=== PATIENT | male | born 1955 | race African-American/Black ===

== ENCOUNTER 2024-01-05 14:46 | Emergency (ER) | payer OTHER ==
[~2024-01-05] VITALS: Ht 182.9 cm; Wt 81.8 kg
[2024-01-05] MEDS: HYDROcodone-ACET 10/325MG TAB PO ONE (16:13)
[2024-01-05] MEDS: KETOROLAC TROMETH 60MG/2ML VIAL IM ONE (16:13)
[2024-01-05] MEDS ORDERED: CYCL-839 PO (17:05)
[2024-01-05] MEDS ORDERED: HYDR-4902 PO (17:05)
[2024-01-05] MEDS ORDERED: IBUP-1455 PO (17:05)
[2024-01-05 17:24] VITALS: BP 123/80; PULSE 95; RESP 19; TEMP 98.8; O2SAT 97
== END 2024-01-05 17:48 | disposition home or self-care (01) ==
LOC: ER 14:46
DX: S39.012A Strain of muscle, fascia and tendon of lower back, initial encounter (principal); M47.896 Other spondylosis, lumbar region; X50.0XXA Overexertion from strenuous movement or load, initial encounter; Y93.89 Activity, other specified; Y92.89 Other specified places as the place of occurrence of the external cause; Y99.8 Other external cause status
CPT/HCPCS: 72070; 72100; 96372; 99284; J1885

== ENCOUNTER 2024-02-21 15:09 | Inpatient (IN) | payer OTHER, MEDICARE ==
[~2024-02-21] VITALS: Ht 182.9 cm; Wt 87.5 kg
[~2024-02-21 15:09] MED LIST: CYCL-839 PO; HYDR-4902 PO; IBUP-1455 PO
[2024-02-21 16:32] LABS: Basophils # (auto) 0.1 10 ^3/uL (0-0.2); Basophils % (auto) 0.6 % (0.0-2.0); Eosinophils # (auto) 0.3 10 ^3/uL (0-0.8); Eosinophils % (auto) 1.9 % (0.0-7.0); Hematocrit 42.9 % (41.0-53.0); Hemoglobin 14.2 g/dL (13.5-17.5); Lymphocytes % (auto) 7.5 % (10.0-50.0); Mean Corpuscular Hemoglobin 29.3 pg (28.0-32.0); Mean Corpuscular Volume 88.8 fL (80.0-100.0); Monocytes # (auto) 0.8 10 ^3/uL (0-1.3); Monocytes % (auto) 5.6 % (0.0-12.0); Neutrophils # (auto) 11.6 10 ^3/uL (1.6-8.6); Neutrophils % (auto) 84.4 % (37.0-80.0); Red Blood Cells 4.83 10^6/uL (4.5-5.90); Red Cell Distribution Width 12.8 % (11.8-14.3); White Blood Cell 13.7 10^3/uL (4.4-10.8)
[2024-02-21 17:01] LABS: Alanine Aminotransferase 29 U/L (7-40); Alkaline Phosphatase 139 U/L (46-116); Anion Gap 6 (5-15); Aspartate Aminotransferase 21 U/L (13-40); BUN/Creatinine Ratio 16.1 (10.0-20.0); Bilirubin, Total 0.3 mg/dL (0.2-1.0); Blood Urea Nitrogen 23 mg/dL (9-23); Calcium 9.8 mg/dL (8.5-10.1); Carbon Dioxide 30 mmol/L (20-30); Chloride 102 mmol/L (98-107); Glucose 94 mg/dL (74-106); Sodium 138 mmol/L (136-145); Total Protein 6.9 g/dL (5.7-8.2)
[2024-02-21] MEDS: IOHEXOL 350 MG/ML 100ML IJ ONE (17:51)
[2024-02-21] MEDS: ALBUTEROL SULF 2.5 MG/0.5ML(0.5%) NEB SOLN NEB ONE (22:55)
[2024-02-21] MEDS: IPRATROPIUM BROM 0.5 MG/2.5ML INH SOL NEB ONE (22:55)
[2024-02-21] MEDS: DexAMETHasone SOD PHOS 10MG/1ML VIAL INJ IV ONE (23:07)
[2024-02-21] MEDS: cefTRIAXone 2GM/50ML D5W 50 ML IV ONE (23:08)
[2024-02-21] MEDS: cefTRIAXone 1GM/50ML D5W 100 ML IV ONE (23:08)
[2024-02-21 23:54] LABS: Urine Bacteria None Seen /hpf (None Seen)
[2024-02-22] VITALS (10 sets, daily range): BP systolic 110–121; BP diastolic 66–92; PULSE 88–115; RESP 13–20; TEMP 98.4–98.9; O2SAT 93–98
[2024-02-22 00:16] LABS: Urine Blood Negative /uL (Negative); Urine Clarity Clear (Clear); Urine Color Light-Yellow (Yellow); Urine Mucus FEW (None Seen); Urine Protein, UAD TRACE (Negative); Urine Urobilinogen Normal (Negative); Urine WBC <1 /hpf (0 - 3); Urine pH 5.5 (5.0-9.0)
[2024-02-22 00:17] LABS: Urine Specific Gravity > 1.050 (1.001-1.035)
[2024-02-22] MEDS ORDERED: ONDANSETRON HCL 4 MG/2 ML VIAL IV PRN (03:30)
[2024-02-22] MEDS ORDERED: HYDROcodone-ACET 5/325MG TAB PO PRN (03:30)
[2024-02-22] MEDS ORDERED: ACETAMINOPHEN 325 MG TAB PO PRN (03:30)
[2024-02-22] MEDS: ALBUTEROL SULF 2.5 MG/0.5ML(0.5%) NEB SOLN NEB PRN (06:23)
[2024-02-22] MEDS: ALBUTEROL SULF 2.5 MG/0.5ML(0.5%) NEB SOLN ONE (06:24)
[2024-02-22] MEDS: GABAPENTIN 300 MG CAP PO SCH (06:43)
[2024-02-22] MEDS: AZITHROMYCIN 500MG/ 250ML 250 ML IV SCH (09:49)
[2024-02-22] MEDS: LOSARTAN POTASSIUM 50 MG TAB PO SCH (09:49)
[2024-02-22] MEDS: ENOXAPARIN SOD 40 MG/0.4 ML SYRINGE SC SCH (09:50)
[2024-02-22] MEDS ORDERED: HYDR2TAB2 PO (11:59)
[2024-02-22] MEDS ORDERED: LOSA-535 PO (11:59)
[2024-02-22] MEDS ORDERED: GABA-1250 PO (11:59)
[2024-02-22] MEDS: MORPHINE SULFATE INJ 2 MG/ml SYRG IV PRN ×2 (13:14→20:55)
[2024-02-22] MEDS: DOCUSATE SOD 100 MG CAP PO ONE (14:00)
[2024-02-22] MEDS ORDERED: LACTULOSE 20Gm/30ML SOLN PO PRN (14:00)
[2024-02-22] MEDS: DOCUSATE SOD 100 MG CAP PO SCH (20:55)
[2024-02-22] MEDS: cefTRIAXone 1GM/50ML D5W 50 ML IV SCH (21:14)
[2024-02-23] VITALS (10 sets, daily range): BP systolic 102–123; BP diastolic 68–82; PULSE 102–113; RESP 16–20; TEMP 97.9–99; O2SAT 90–97
[2024-02-23 07:11] LABS: Basophils # (auto) 0 10 ^3/uL (0-0.2); Basophils % (auto) 0.2 % (0.0-2.0); Eosinophils # (auto) 0 10 ^3/uL (0-0.8); Eosinophils % (auto) 0.2 % (0.0-7.0); Hematocrit 41.1 % (41.0-53.0); Hemoglobin 13.7 g/dL (13.5-17.5); Lymphocytes # (auto) 0.9 10 ^3/uL (0.4-5.4); Lymphocytes % (auto) 5.4 % (10.0-50.0); Mean Corpuscular Hemoglobin 29.4 pg (28.0-32.0); Mean Corpuscular Hgb Conc. 33.3 g/dL (32.0-36.0); Mean Corpuscular Volume 88.2 fL (80.0-100.0); Monocytes # (auto) 1.1 10 ^3/uL (0-1.3); Monocytes % (auto) 7.1 % (0.0-12.0); Neutrophils # (auto) 14.1 10 ^3/uL (1.6-8.6); Neutrophils % (auto) 87.1 % (37.0-80.0); Red Blood Cells 4.67 10^6/uL (4.5-5.90); White Blood Cell 16.1 10^3/uL (4.4-10.8)
[2024-02-23] MEDS: AMPICILLIN & SULBACTAM SODIUM 3 GM in SODIUM CHL 0.9% 100 ML IV SCH (07:30)
[2024-02-23 07:32] LABS: Alanine Aminotransferase 27 U/L (7-40); Alkaline Phosphatase 141 U/L (46-116); Anion Gap 7 (5-15); BUN/Creatinine Ratio 12.4 (10.0-20.0); Blood Urea Nitrogen 14 mg/dL (9-23); Calcium 9.6 mg/dL (8.7-10.4); Carbon Dioxide 27 mmol/L (20-30); Chloride 102 mmol/L (98-107); Glucose 117 mg/dL (74-106); Potassium 3.9 mmol/L (3.5-5.1); Sodium 136 mmol/L (136-145)
[2024-02-23 07:34] LABS: Aspartate Aminotransferase 28 U/L (13-40); Bilirubin, Total 0.4 mg/dL (0.2-1.0); Total Protein 7.1 g/dL (5.7-8.2)
[2024-02-23] MEDS: BISACODYL 10 MG RECT SUPP PR ONE (08:50)
[2024-02-23] MEDS: SODIUM CHLORIDE 0.9% 1,000 ML IV SCH (09:58)
[2024-02-23 11:37] LABS: Creatinine, Urine 144.45 mg/dL (30.0-125.0)
[2024-02-23] MEDS ORDERED: GADOTERATE MEG 10 MMOL/20ml INJ (0.5MMOL/ml) IV ONE (12:28)
[2024-02-24] VITALS (9 sets, daily range): BP systolic 101–162; BP diastolic 67–95; PULSE 93–117; RESP 14–17; TEMP 97–99; O2SAT 95–99
[2024-02-24 06:29] LABS: Basophils # (auto) 0.1 10 ^3/uL (0-0.2); Basophils % (auto) 0.4 % (0.0-2.0); Eosinophils # (auto) 0.1 10 ^3/uL (0-0.8); Eosinophils % (auto) 0.7 % (0.0-7.0); Hematocrit 38.5 % (41.0-53.0); Hemoglobin 13.1 g/dL (13.5-17.5); Lymphocytes # (auto) 1.1 10 ^3/uL (0.4-5.4); Lymphocytes % (auto) 7.8 % (10.0-50.0); Mean Corpuscular Hemoglobin 29.8 pg (28.0-32.0); Mean Corpuscular Volume 87.8 fL (80.0-100.0); Monocytes % (auto) 6.8 % (0.0-12.0); Neutrophils # (auto) 12.2 10 ^3/uL (1.6-8.6); Neutrophils % (auto) 84.3 % (37.0-80.0); Red Blood Cells 4.38 10^6/uL (4.5-5.90); Red Cell Distribution Width 13.1 % (11.8-14.3); White Blood Cell 14.5 10^3/uL (4.4-10.8)
[2024-02-24 06:54] LABS: Alanine Aminotransferase 26 U/L (7-40); Albumin 3.8 g/dL (3.2-4.8); Alkaline Phosphatase 151 U/L (46-116); Anion Gap 6 (5-15); Aspartate Aminotransferase 39 U/L (13-40); BUN/Creatinine Ratio 12.7 (10.0-20.0); Blood Urea Nitrogen 13 mg/dL (9-23); Calcium 9.3 mg/dL (8.7-10.4); Carbon Dioxide 27 mmol/L (20-30); Chloride 103 mmol/L (98-107); Glucose 103 mg/dL (74-106); Sodium 136 mmol/L (136-145)
[2024-02-24 06:55] LABS: Bilirubin, Total 0.7 mg/dL (0.2-1.0); Total Protein 6.7 g/dL (5.7-8.2)
[2024-02-24] MEDS: MORPHINE SULF 15mg ER tab PO ONE (10:44)
[2024-02-24] MEDS: HYDROmorphone HCL 2 MG TAB PO PRN (10:44)
[2024-02-24] MEDS: ERGOCALCIFEROL 50,000 UNIT(1.25MG) CAP PO SCH (10:54)
[2024-02-24] MEDS: BISACODYL 10 MG RECT SUPP PR PRN (14:16)
[2024-02-24] MEDS: MORPHINE SULF 15mg ER tab PO SCH (21:47)
[2024-02-25] VITALS (7 sets, daily range): BP systolic 99–124; BP diastolic 60–73; PULSE 93–114; RESP 12–20; TEMP 97.7–98.2; O2SAT 91–97
[2024-02-25 07:29] LABS: Basophils # (auto) 0.1 10 ^3/uL (0-0.2); Basophils % (auto) 0.4 % (0.0-2.0); Eosinophils # (auto) 0.2 10 ^3/uL (0-0.8); Eosinophils % (auto) 1.6 % (0.0-7.0); Hemoglobin 12.4 g/dL (13.5-17.5); Lymphocytes % (auto) 7.6 % (10.0-50.0); Mean Corpuscular Hemoglobin 29.6 pg (28.0-32.0); Mean Corpuscular Hgb Conc. 33.6 g/dL (32.0-36.0); Mean Corpuscular Volume 87.9 fL (80.0-100.0); Monocytes % (auto) 7.2 % (0.0-12.0); Neutrophils # (auto) 11.2 10 ^3/uL (1.6-8.6); Neutrophils % (auto) 83.2 % (37.0-80.0); Red Blood Cells 4.21 10^6/uL (4.5-5.90); Red Cell Distribution Width 12.9 % (11.8-14.3); White Blood Cell 13.4 10^3/uL (4.4-10.8)
[2024-02-25 07:46] LABS: Alanine Aminotransferase 30 U/L (7-40); Albumin 3.6 g/dL (3.2-4.8); Alkaline Phosphatase 149 U/L (46-116); Anion Gap 5 (5-15); Aspartate Aminotransferase 35 U/L (13-40); BUN/Creatinine Ratio 11.4 (10.0-20.0); Blood Urea Nitrogen 12 mg/dL (9-23); Carbon Dioxide 28 mmol/L (20-30); Chloride 103 mmol/L (98-107); Glucose 94 mg/dL (74-106); Potassium 4.2 mmol/L (3.5-5.1); Sodium 136 mmol/L (136-145)
[2024-02-25 07:47] LABS: Bilirubin, Total 0.6 mg/dL (0.2-1.0); Total Protein 6.2 g/dL (5.7-8.2)
[2024-02-25] MEDS ORDERED: GADOTERATE MEG 10 MMOL/20ml INJ (0.5MMOL/ml) IV ONE (08:05)
[2024-02-26 05:00] VITALS: BP 107/69; PULSE 101; RESP 15; TEMP 98.6; O2SAT 95
[2024-02-26 09:00] VITALS: BP 114/70; PULSE 91; RESP 20; TEMP 98; O2SAT 96
[2024-02-26 11:05] VITALS: O2SAT 94
[2024-02-26 13:00] VITALS: BP 115/76; PULSE 105; RESP 18; TEMP 97.6; O2SAT 97
[2024-02-26 17:00] VITALS: BP 147/71; PULSE 100; RESP 20; TEMP 98.3; O2SAT 96
[2024-02-26 22:03] VITALS: BP 122/73; PULSE 99; RESP 17; TEMP 98.3; O2SAT 93
[2024-02-27] VITALS (7 sets, daily range): BP systolic 105–136; BP diastolic 65–80; PULSE 74–102; RESP 16–18; TEMP 98.1–98.5; O2SAT 90–96
[2024-02-27] MEDS ORDERED: AUG875T PO (10:56)
[2024-02-27] MEDS ORDERED: MORP1TAB12 PO (10:56)
[2024-02-27] MEDS ORDERED: MORP-109 PO ×2 (13:34→14:16)
== END 2024-02-27 14:30 | disposition home or self-care (01) | DRG 871 ==
LOC: ER 15:09 → EDBD 15:09 → ER 02-22 03:38 → OVERFLOW 02-22 03:38 → ER 02-22 03:54 → EAST 02-22 10:54
PROVIDERS: ADMIT Nurse Practitioner; ATTEND Internal Medicine Geriatric Medicine
DX: A41.9 Sepsis, unspecified organism (principal); J15.69 Pneumonia due to other Gram-negative bacteria; J96.01 Acute respiratory failure with hypoxia; N17.0 Acute kidney failure with tubular necrosis; J15.9 Unspecified bacterial pneumonia; C34.90 Malignant neoplasm of unspecified part of unspecified bronchus or lung; C79.51 Secondary malignant neoplasm of bone; M48.54XA Collapsed vertebra, not elsewhere classified, thoracic region, initial encounter for fracture; E27.9 Disorder of adrenal gland, unspecified; I10 Essential (primary) hypertension; E55.9 Vitamin D deficiency, unspecified; G89.3 Neoplasm related pain (acute) (chronic); Z87.891 Personal history of nicotine dependence; Z80.7 Family history of other malignant neoplasms of lymphoid, hematopoietic and related tissues; Z80.1 Family history of malignant neoplasm of trachea, bronchus and lung
CPT/HCPCS: 36415; 70450; 70553; 71275; 74183; 76775; 80053; 81001; 82306; 82570; 83735; 83880; 83970; 84100; 84300; 84484; 85025; 85379; 94640; 96365; 96375; G0378; J1100